=== PATIENT | female | born 1995 | race Two or more races ===

== ENCOUNTER 2019-01-24 16:32 | Emergency (ER) | payer MEDICAID ==
[~2019-01-24] VITALS: Ht 172.7 cm; Wt 129.3 kg
--- NOTE | 2019-01-24 16:46 | NUR ---
PT CAME IN TO ER BIB RA FOR SYNCOPAL EPISODE AT WORK. SHE STATES THAT SHE SAW HER VISION WAS BEGINNING TO BLUR AND ASKED FOR WATER TO HELP WITH HER DIZZINESS. SHE THEN STATES THAT SHE REGAINED CONCIOUSNESS ON AND OFF IN THE [facility]. SHE C/O OF CHEST PAIN THAT IS 7/10 NON RADIATING. NO SOB NOTED. NOT IN ANY DISTRESS. WILL CONTINUE TO MONITOR
[2019-01-24 17:45] LABS: BASOPHILS # (AUTO) 0.1 /CMM (0.0-0.2); BASOPHILS % (AUTO) 0.9 % (0.0-2.0); EOSINOPHILS % (AUTO) 3.2 % (0.0-6.0); HEMATOCRIT 46 % (33-45); HEMOGLOBIN 15.8 g/dL (11.5-14.8); MEAN CORPUSCULAR HGB CONC 34 g/dl (31.0-36.0); MEAN CORPUSCULAR VOLUME 89 fL (82-100); MONOCYTES # (AUTO) 0.7 /CMM (0.1-1.30); MONOCYTES % (AUTO) 7.7 % (2.0-12.0); NEUTROPHILS # (AUTO) 5.5 /CMM (1.8-8.9); NEUTROPHILS % (AUTO) 57.2 % (43.0-81.0); PLATELET COUNT (AUTO) 257 /CMM (150-450); RED BLOOD CELL COUNT(AUTO) 5.17 MIL/uL (4.0-5.2); WHITE BLOOD COUNT (AUTO) 9.6 K/uL (4.3-11.0)
[2019-01-24 17:50] LABS: CALCIUM, SERUM 9.4 mg/dL (8.5-10.1); CARBON DIOXIDE 25 mmol/L (21-32); CHLORIDE 104 mmol/L (98-107); CREATININE 0.8 mg/dL (0.6-1.3); GLUCOSE 87 mg/dL (74-106); SODIUM SERUM 138 mmol/L (136-145); UREA NITROGEN, BLOOD 12 mg/dL (7-18)
[2019-01-24] MEDS ORDERED: IV NS 0.9% 1,000 ML BAG IV ONE (18:00)
[2019-01-24 18:14] LABS: MAGNESIUM 2.1 mg/dL (1.8-2.4); PHOSPHORUS 2.8 mg/dL (2.5-4.9)
--- NOTE | 2019-01-24 19:40 | NUR ---
PT C/O OF MID CHEST PAIN 10/17 RADIATING TO BACK W/ L ARM NUMBNESS. MADE AWARE.
--- NOTE | 2019-01-24 20:04 | NUR ---
PT RECEIVED FROM CATHERINE ZHAO FOR LINNEA. PT IN BED [id number]. NAD NOTED.
[2019-01-24 21:50] VITALS: BP 132/75
--- NOTE | 2019-01-24 21:50 | NUR ---
Patient discharged to home in stable condition. Written and verbal after care instructions given. Patient verbalizes understanding of instruction.IV removed. Catheter intact and site benign. Pressure and 4x4 applied to site. No bleeding noted. Pt ambulatory with a steady gait
== END 2019-01-24 21:51 | disposition home or self-care (01) ==
LOC: ER 16:34
DX: R55 Syncope and collapse (principal); Z60.2 Problems related to living alone
CPT/HCPCS: 36415; 70450; 71045; 72125; 80048; 83735; 84100; 84484 ×2; 84703; 85025; 85730; 93005 ×2; 96360; 99284; J7030